=== PATIENT | male | born 2005 | race Caucasian/White ===

== ENCOUNTER 2023-11-04 20:42 | Emergency (ER) | payer OTHER, SELFPAY ==
[2023-11-04 20:44] VITALS: BP 144/89
--- NOTE | 2023-11-04 22:03 | ED.GENMED ---
History of Present Illness
General
Chief Complaint: Musculo-Skeletal Complaint
Source: patient
Exam Limitations: none
Time Seen by Provider: 11/04/23 21:28
Nursing documentation reviewed up to this point in time: agreed with
Travel History
Have you had any contact with someone who has COVID-19?: No
Do you have any symptoms of coronavirus? Fever > 100 degrees, chills, cough, shortness of breath, sore throat, loss of taste or smell, muscle aches, or headache?: No
History of Present Illness
History of Present Illness:
The patient is a pleasant 18-year-old man who arrives with complaints of right ankle pain and swelling after coming down awkwardly onto his right foot while playing basketball. Patient reports he twisted his ankle. He reports both the inner and
outer aspect of his ankle are hurting him, but the outer area hurts worse. He is unable to bear weight. Patient denies any other areas of pain including headache and neck pain.
Past History
Past History
ED Past Medical History: None
ED Past Surgical History: None
Social History
Tobacco: Non-smoker
Alcohol: None
Drug: None
Personal: Single
Living: with family
Employment: Other
Family History
Family History: Other
Review of Systems
Review of Systems
Allergies reviewed?: Yes
All Other Systems: ROS reviewed and negative except as documented in HPI and ROS
Constitutional: Reports no symptoms
EENT: Reports no symptoms
Respiratory: Reports no symptoms
Cardiac: Reports no symptoms
ABD/GI: Reports no symptoms
: Reports no symptoms
Musculoskeletal: Reports joint pain and joint swelling
Skin: Reports no symptoms
Neurological: Reports no symptoms
Endocrine: Reports no symptoms
Hematologic/Lymphatic: Reports no symptoms
Psychiatric: Reports no symptoms
Phy Exam
Physical Exam
Physical Exam:
Physical Exam
General: no apparent distress, not acutely ill. Atraumatic appearing face and head
Neck: supple. Nontender
Heart: s1/s2 regular rate and rhythm, no murmur. equal radial pulses.
Lungs: no acute respiratory distress. clear bilaterally
Abdomen: Soft, nontender
Neuro: alert and oriented. no focal neurological deficits
Skin: no rash
Psychiatric: well kept. interactive and cooperative
Extremities: Significant swelling and soft tissue tenderness of lateral and medial right ankle. Strong pulses and excellent sensation of right lower extremity. Full range of movement of right hip and right knee.
Course
Orders/Labs/Results
Orders:
Orders
11/04/23 20:45
CR Ankle - Right Min 3 Views * Urgent
Comment:
Reason For Exam: pain
Foot, Right 3 View [CR Foot - Right Min 3 Views] Urgent
Comment:
Reason For Exam: pain
11/04/23 22:03
Air Splint Right-Treatment ONCE
Comment: R ankle
Crutches-Treatment ONCE
Vital Signs
Initial and Last Documented VS:
Initial Vital Signs
Temp Pulse Resp BP Pulse Ox
99.0 F 108 16 144/89 99
11/04/23 20:44 11/04/23 20:44 11/04/23 20:44 11/04/23 20:44 11/04/23 20:44
Last Documented Vital Signs
Temp Pulse Resp BP Pulse Ox
99.0 F 108 16 144/89 99
11/04/23 20:44 11/04/23 20:44 11/04/23 20:44 11/04/23 20:44 11/04/23 20:44
MDM/Problems Addressed
Differential Diagnosis Includes:
Right ankle fracture, right foot fracture, right ankle sprain
MDM/Problems Addressed:
Patient presents with acute traumatic right ankle pain and swelling
*Radiology
Radiology exam reviewed: preliminary read by ED provider (Right foot and ankle films reviewed by me. No acute fracture) and radiology read reviewed
*Pulse Oximetry
Patient hypoxic: no
*EKG
Interpreted by ED Provider?: NA
*Auditor Appraiser Interpretation
Rate: Auditor Appraiser- N/A
*Critical Care Note
Total Time (30-74mins, 75-104mins- exclusive of procedures): Not Applicable
Data Reviewed
Source: patient and family (Mother)
Patient Management
Social determinants of health affecting care: Living situation and Strong social support
Escalation/DeEscalation of care consider admission/obs:
Patient placed in [employer]irc[employer] and given crutches. Will bear weight as tolerated. Encouraged to ice and elevate. Given orthopedic follow-up
ED Attending Note
-
Portions of this chart may have been created with voice recognition software.� Occasional wrong word or��sound alike� substitutions may have occurred due to the inherent limitations of voice recognition software.
Discharge Plan
Departure
Patient Disposition: Home (Routine Discharge)
Date of Disposition: 11/04/23
Time of Disposition: 22:04
Patient with high blood pressure during this ER visit?: No
Condition: Good
Covid-19: Not Applicable
Discharge Problem:
Right ankle sprain
Instructions: How to Use Crutches, Ankle Sprain ED
Prescriptions:
No Action
Bactrim
1 tab PO BID
hydrocodone-acetaminophen 1 TABLET tablet
1 - 2 tab PO Q4HPRN PRN (Reason: pain) Qty: 15 0RF
ciprofloxacin HCl [Ciloxan] 0.3 % drops
4 drops EACH EAR BID 2 Days Qty: 1 2RF
sulfamethoxazole-trimethoprim 1 TABLET tablet
1 tab PO BID 5 Days Qty: 10 0RF
hydrocodone-acetaminophen 15 ML solution
15 ml PO Q4HPRN PRN (Reason: pain) Qty: 6 0RF
Referrals:
Sameer Stanley MD [Active] - (call tomorrow to follow up in about 1 week)
Activity Restrictions/Additional Instructions:
Take 600 mg of Motrin every 6-8 hours with food. In addition, you could also take 1000 mg of Tylenol every 4 hours for pain. Please try to ice and elevate the ankle. Call orthopedic doctor tomorrow.
Interventions
Interventions:
*Risk Screen - Suicide Last Done: 11/04/23 20:44
*General Assessment Last Done: 11/04/23 20:44
*Neglect/Abuse Screening Last Done: 11/04/23 20:44
ED-Musculoskeletal Assessment Last Done: 11/04/23 22:42
Discharge Date and Time
Print Language: EQUATORIAL GUINEAN
== END 2023-11-04 22:43 | disposition home or self-care (01) ==
LOC: EMR 20:42
PROVIDERS: EMERGENCY PHYSICIAN Emergency Medicine
DX: S93.401A Sprain of unspecified ligament of right ankle, initial encounter (principal); X50.1XXA Overexertion from prolonged static or awkward postures, initial encounter; Y93.67 Activity, basketball
CPT/HCPCS: 99283; 73610; 73630